=== PATIENT | female | born 1970 | race African-American/Black ===

== ENCOUNTER 2021-04-05 15:48 | Outpatient (CLI) | payer OTHER | END 2021-04-05 15:49 | disposition home or self-care (01) | LOC: CSHRAD 15:48 | PROVIDERS: ATTEND Psychiatry & Neurology Neurology | DX: M54.9 Dorsalgia, unspecified (principal); M47.816 Spondylosis without myelopathy or radiculopathy, lumbar region | CPT/HCPCS: 71046; 72100 ==